=== PATIENT | male | born 1985 | race African-American/Black ===

== ENCOUNTER 2017-11-28 10:02 | Emergency (ER) | payer SELFPAY ==
[~2017-11-28] VITALS: Ht 162.6 cm; Wt 67.0 kg
[~2017-11-28 10:02] MED LIST: DIPH25CA83; INSLIS; TRIF1TAB2
[2017-11-28] MEDS ORDERED: TETANUS, DIPHTHERIA, PERTUSSIS VAC/PF 0.5ML (>7YR OLD) IM ONE (11:45)
[2017-11-28] MEDS ORDERED: BACITRACIN ZINC OINT UDPKT TOP ONE (12:45)
[2017-11-28] MEDS ORDERED: IBUPROFEN 600MG TABLET PO ONE (12:45)
[2017-11-28 13:20] VITALS: BP 109/57
== END 2017-11-28 14:38 | disposition home or self-care (01) ==
LOC: ER 10:43
DX: S61.214A Laceration without foreign body of right ring finger without damage to nail, initial encounter (principal); E11.9 Type 2 diabetes mellitus without complications; Z79.4 Long term (current) use of insulin; X58.XXXA Exposure to other specified factors, initial encounter; Y93.89 Activity, other specified; Y92.89 Other specified places as the place of occurrence of the external cause; Y99.8 Other external cause status
CPT/HCPCS: 12002; 73140; 90471; 90715; 99283; X7700; Z7610

== ENCOUNTER 2018-01-24 11:37 | Emergency (ER) | payer SELFPAY ==
[~2018-01-24] VITALS: Ht 152.4 cm; Wt 60.1 kg
[2018-01-24 11:55] VITALS: BP 103/71
[2018-01-24] MEDS ORDERED: LIDOCAINE HCL 1% 20ML VIAL (Pyxis) INJ INFIL ONE (12:00)
[2018-01-24] MEDS ORDERED: TETANUS, DIPHTHERIA, PERTUSSIS VAC/PF 0.5ML (>7YR OLD) IM ONE (12:00)
[2018-01-24] MEDS ORDERED: FLUO-124 MT (12:02)
[2018-01-24] MEDS ORDERED: METF500T6 PO (12:02)
[2018-01-24] MEDS ORDERED: GLIP5TAB12 MT (12:02)
[2018-01-24] MEDS ORDERED: ACETAMINOPHEN 325MG TABLET PO ONE (18:45)
[2018-01-24] MEDS ORDERED: BACITRACIN ZINC OINT UDPKT TOP ONE (18:45)
== END 2018-01-24 18:52 | disposition home or self-care (01) ==
LOC: ER 11:37
DX: S01.01XA Laceration without foreign body of scalp, initial encounter (principal); W18.39XA Other fall on same level, initial encounter; Y93.89 Activity, other specified; Y92.092 Bedroom in other non-institutional residence as the place of occurrence of the external cause; F84.0 Autistic disorder; E11.9 Type 2 diabetes mellitus without complications; F42.9 Obsessive-compulsive disorder, unspecified; Z23 Encounter for immunization
CPT/HCPCS: 90471; 90715; 99283; J3490